=== PATIENT | female | born 1965 | race Caucasian/White ===

== ENCOUNTER 2016-07-29 13:05 | Outpatient (CLI) | payer OTHER ==
[2013-11-17 18:21] VITALS: BP 120/77
== END 2016-07-29 13:20 | disposition home or self-care (01) ==
LOC: CARD 13:05
PROVIDERS: ATTEND Internal Medicine Cardiovascular Disease
DX: I47.1 Supraventricular tachycardia (principal); E78.5 Hyperlipidemia, unspecified
CPT/HCPCS: 99213

== ENCOUNTER 2016-10-14 13:41 | Outpatient (CLI) | payer OTHER ==
[2013-11-17 18:21] VITALS: BP 120/77
== END 2016-10-14 13:42 ==
LOC: CARD 13:41
PROVIDERS: ATTEND Internal Medicine Cardiovascular Disease
DX: I47.1 Supraventricular tachycardia (principal); E78.5 Hyperlipidemia, unspecified
CPT/HCPCS: 99213